=== PATIENT | female | born 2000 | race Caucasian/White ===

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

== ENCOUNTER 2019-02-15 13:39 | Emergency (ER) | payer OTHER ==
[2019-02-15 13:47] VITALS: BP 108/54; PULSE 80; TEMP 98; BMI 21.9
[2019-02-15] MEDS ORDERED: DIPHTH,PERTUSS(ACELL),TET 0.5 ML DISP.SYRIN IM ONE ×2 (13:51→14:14)
--- NOTE | 2019-02-15 13:51 | PDOC ---
Rapid Medical Evaluation Time Seen by Provider: 02/15/19 13:46 Medical Evaluation: Allergies Allergy/AdvReac Type Severity Reaction Status Date / Time No Known Allergies Allergy Verified 02/15/19 13:47 Vital Signs Temp Pulse Resp BP Pulse Ox 98 F 80 18 108/54 L 99 02/15/19 13:45 02/15/19 13:45 02/15/19 13:45 02/15/19 13:45 02/15/19 13:45 02/15/19 13:47 Pt c/o: pts domesticated indoor cat bit her yesterday to rt ankle, now red and swollen, denies med hx Pt on brief exam: nild erythema and edema to lat aspect of rt malleolus Pt ordered for: tdap Pt to proceed to the ED Discharge Disposition - Diagnosis Cat bite - Referrals - Patient Instructions - Post Discharge Activity
--- NOTE | 2019-02-15 14:38 | PDOC ---
History of Present Illness - General Chief Complaint: Bite Stated Complaint: CAT BITE ON THE RT ANKLE Time Seen by Provider: 02/15/19 13:46 History Source: Patient Exam Limitations: No Limitations - History of Present Illness Initial Comments: 02/15/19 19:05 18 year old female 14 weeks presents with cat bite to ankle. States her cat was fighting another cat and she tried to break it up and the cat bit her. States cat shots are up to date. Complaining of increasing pain, swelling and redness of ankle. Denies fever or chills. Timing/Duration: reports: yesterday Severity: Yes: moderate Location: reports: extremities Respiratory Risk Factors: reports: no cause identified Modifying Factors: improves with: other (no intervention so far ) Associated Symptoms: reports: edema Past History - Travel Traveled outside of the country in the last 30 days: Yes Close contact w/someone who was outside of country & ill: No - Past Medical History Allergies/Adverse Reactions: Allergies Allergy/AdvReac Type Severity Reaction Status Date / Time No Known Allergies Allergy Verified 02/15/19 13:47 Home Medications: Ambulatory Orders Cephalexin [Keflex] 500 mg PO BID 5 Days #10 capsule 12/11/18 Cephalexin [Keflex] 500 mg PO BID 5 Days #10 capsule 12/28/18 Amoxicillin/Potassium Clav [Augmentin 875-125 Tablet] 1 each PO BID #20 tablet 02/15/19 COPD: No - Immunization History Immunization Up to Date: Yes - Psycho Social/Smoking Cessation Hx Smoking History: Never smoked Hx Alcohol Use: No Drug/Substance Use Hx: No Review of Systems - Review of Systems Able to Perform ROS?: Yes Is the patient limited B[place]ian proficient: No Constitutional: No: Fever, Malaise, Weakness HEENTM: No: Nose Congestion, Hearing Loss, Throat Pain, Throat Swelling Respiratory: No: Orthopnea, Shortness of Breath, SOB at Rest, Wheezing Cardiac (ROS): No: Edema, Lightheadedness ABD/GI: No: Nausea, Poor Appetite, Abdominal cramping Musculoskeletal: Yes: Joint Pain, Joint Swelling Integumentary: Yes: Bruising, Erythema Neurological: No: Headache, Numbness, Paresthesia, Tingling, Tremors Psychiatric: No: Stressors Endocrine: No: Intolerance to Heat Hematologic/Lymphatic: No: Blood Clots *Physical Exam - Vital Signs Last Vital Signs Temp Pulse Resp BP Pulse Ox 98 F 80 18 108/54 L 99 02/15/19 13:45 02/15/19 13:45 02/15/19 13:45 02/15/19 13:45 02/15/19 13:45 - Physical Exam General Appearance: Yes: Nourished HEENT: positive: TMs Normal, Pharynx Normal Neck: positive: Supple. negative: Lymphadenopathy (R), Lymphadenopathy (L) Respiratory/Chest: positive: Lungs Clear Cardiovascular: positive: Regular Rhythm, Regular Rate Musculoskeletal: negative: Vertebral Tenderness Extremity: positive: Normal Capillary Refill, Swelling, Erythema, Other (+ swelling of right lateral malleolus, + tenderness, + erythematous). 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 States her cat was fighting another cat and she tried to break it up and the cat bit her. States cat shots are up to date. Complaining of increasing pain, swelling and redness of ankle. Denies fever or chills. Cat bit with early cellulitis -tetanus ordered by SIMONE Crocker -RX: augmentin ( category B), instructed patient to follow up with residential installer strict return instructions given and s/s of worsening infection instructed Discharge - Discharge Information Problems reviewed: Yes Clinical Impression/Diagnosis: Cat bite Qualifiers: Encounter type: initial encounter Qualified Code(s): W55.01XA - Bitten by cat, initial encounter Condition: Good Disposition: HOME - Admission No - Additional Discharge Information Prescriptions: Amoxicillin/Potassium Clav [Augmentin 875-125 Tablet] 1 each PO BID #20 tablet - Follow up/Referral Referrals: Diya Luciano MD [Primary Care Provider] - (call for appointment) - Patient Discharge Instructions Patient Printed Discharge Instructions: DI for Animal Bites Additional Instructions: Please wash area with soap and water Call residential installer for follow up appointment Take medication as prescribed return for worsening symptoms - Post Discharge Activity Work/Back to School Note: Back to Work
== END 2019-02-15 14:41 | disposition home or self-care (01) ==
LOC: JERFT 13:39
PROC: 3E0234Z Introduction of Serum, Toxoid and Vaccine into Muscle, Percutaneous Approach (ICD-10-PCS; principal; 2019-02-15)
DX: O99.89 Other specified diseases and conditions complicating pregnancy, childbirth and the puerperium (principal); S91.051A Open bite, right ankle, initial encounter; L03.115 Cellulitis of right lower limb; W55.01XA Bitten by cat, initial encounter; Y93.K9 Activity, other involving animal care; Y92.038 Other place in apartment as the place of occurrence of the external cause; Y99.8 Other external cause status; Z3A.14 14 weeks gestation of pregnancy
CPT/HCPCS: 90715; 99281-25

== ENCOUNTER 2019-03-06 12:53 | Emergency (ER) | payer OTHER ==
--- NOTE | 2019-03-06 13:19 | PDOC ---
Rapid Medical Evaluation Time Seen by Provider: 03/06/19 13:17 Medical Evaluation: Allergies Allergy/AdvReac Type Severity Reaction Status Date / Time No Known Allergies Allergy Verified 02/15/19 13:47 03/06/19 13:17 I have performed a brief in-person evaluation of this patient. The patient presents with a chief complaint of:Lower abd pain since last night. No vag bleed, dysuria, n/v/f/c. , currently 17 weeks by dates, confirmed IUP on multiple US, last US 02/26 w/ no issues w/ preg so far. F/u with Dr Luciano of OB Pertinent physical exam findings:stable and well arleen I have ordered the following:ua/ucx The patient will proceed to the ED for further evaluation. 03/06/19 13:19 Discharge Disposition - Diagnosis Abdominal pain affecting - Referrals - Patient Instructions - Post Discharge Activity
[2019-03-06 13:20] VITALS: BMI 21.9
--- NOTE | 2019-03-06 14:21 | PDOC ---
*Physical Exam - Vital Signs Last Vital Signs Temp Pulse Resp BP Pulse Ox 98.5 F 75 16 104/62 99 03/06/19 13:18 03/06/19 13:18 03/06/19 13:18 03/06/19 13:18 03/06/19 13:18 ED Treatment Course - LABORATORY CBC & Chemistry Diagram: 03/06/19 16:22 03/06/19 16:22 Medical Decision Making - Medical Decision Making 03/06/19 14:21 18 yo F 19 week presenting to the ER due to RLQ pain which has been persistent Pt seen by Midlevel Provider under my direct supervision Pt interviewed and examined Agree with YUSRA exam Ancillary studies reviewed OB US shows IUP at 19 weeks gestation UA + --> will treat MRI abdomen - pending I agree with plan as outlined by Midlevel Provider Discharge - Discharge Information Problems reviewed: Yes Clinical Impression/Diagnosis: Right ovarian cyst UTI (urinary tract infection) Qualifiers: Urinary tract infection type: acute cystitis Hematuria presence: without hematuria Qualified Code(s): N30.00 - Acute cystitis without hematuria Condition: Stable Disposition: HOME - Additional Discharge Information Prescriptions: Cephalexin Monohydrate [Keflex -] 500 mg PO BID #13 capsule - Follow up/Referral - Patient Discharge Instructions Patient Printed Discharge Instructions: DI for Ovarian Cyst Additional Instructions: Thank you for choosing [facility]. It was a pleasure taking care of you. There was no evidence of appendicitis There is possibility of ruptured right ovarian cyst Take Tylenol as needed for pain You were given antibiotics for urine infection Continue follow-up with your OB Return to the Emergency Department if your symptoms worsen or persist or have other concerning symptoms. - Post Discharge Activity
[2019-03-06] MEDS ORDERED: ACETAMINOPHEN 500 MG TABLET (FP) PO ONE (14:37)
--- NOTE | 2019-03-06 15:26 | PDOC ---
History of Present Illness - General Chief Complaint: Pain Stated Complaint: PREG/ABD PAIN Time Seen by Provider: 03/06/19 13:17 History Source: Patient Exam Limitations: No Limitations - History of Present Illness Initial Comments: 03/06/19 15:22 18-year-old female 17 weeks GA, on vitamins presents complaining of constant right lower quadrant crampy pain since 3 AM today. Denies nausea, vomiting, fever, chills, decreased appetite, vaginal bleeding, vaginal discharge , chest pain, shortness of breath, back pain or urinary symptoms. She reports a normal ultrasound February 26 and has a follow-up appointment with ( OB) March 12, 2019. ROS: GENERAL/CONSTITUTIONAL: No fever, chills, weakness HEAD, EYES, EARS, NOSE AND THROAT: No changes in vision, No ear pain or discharge, No sore throat CARDIOVASCULAR: No chest pain RESPIRATORY: No shortness of breath or cough GASTROINTESTINAL: Right lower quadrant abdominal pain, denies nausea, vomiting, diarrhea or constipation GENITOURINARY: No dysuria MUSCULOSKELETAL: No neck or back pain SKIN: No rash NEUROLOGIC: No headache, vertigo, loss of consciousness, or loss of sensation PE: GENERAL: well-appearing, NAD HEAD: NCAT EYES: Pupils equal, round and reactive to light, sclera anicteric, conjunctiva clear ENT: pharynx: no erythema, no exudate, uvula midline NECK: supple CHEST: nontender RESP: clear, no w/r/r CARDIO: rrr, no m/g/r ABD: +BS, soft, RLQ ttp, no r/g, non distended BACK: no midline spinal ttp, no CVAT EXTREMITIES: Normal range of motion, no edema NEUROLOGICAL: Normal speech, normal gait SKIN: Warm, Dry Past History - Past Medical History Allergies/Adverse Reactions: Allergies Allergy/AdvReac Type Severity Reaction Status Date / Time No Known Allergies Allergy Verified 03/06/19 13:18 Home Medications: Ambulatory Orders Cephalexin [Keflex] 500 mg PO BID 5 Days #10 capsule 12/11/18 Cephalexin [Keflex] 500 mg PO BID 5 Days #10 capsule 12/28/18 Amoxicillin/Potassium Clav [Augmentin 875-125 Tablet] 1 each PO BID #20 tablet 02/15/19 COPD: No - Immunization History Immunization Up to Date: Yes - Psycho Social/Smoking Cessation Hx Smoking History: Never smoked Information on smoking cessation initiated: No Hx Alcohol Use: No Drug/Substance Use Hx: No *Physical Exam - Vital Signs Last Vital Signs Temp Pulse Resp BP Pulse Ox 98.5 F 75 16 104/62 99 03/06/19 13:18 03/06/19 13:18 03/06/19 13:18 03/06/19 13:18 03/06/19 13:18 Medical Decision Making - Medical Decision Making 03/06/19 15:24 18-year-old denies past medical history, 17 weeks GA complaining of constant right lower quadrant pain since 3 AM today. Denies n/v/f/c/d, decreased appetite, vaginal bleeding, back pain, urinary symptoms. Ordered CBC, BMP, type and screen, coags UA, urine culture Consider abdominal MRI to rule out appendicitis 03/06/19 16:09 Ordered OB ultrasound to rule out appendectomy Also ordered abdominal MRI without contrast Lab results pending Signed out to SOY Minor Discharge - Discharge Information Problems reviewed: Yes Clinical Impression/Diagnosis: Abdominal pain affecting Condition: Stable - Follow up/Referral - Patient Discharge Instructions - Post Discharge Activity
[2019-03-06] MEDS ORDERED: ACETAMINOPHEN 325 MG TABLET (FP) ONE (16:01)
[2019-03-06 16:47] LABS: BASO % 0.5 % (0-2.0); EOS % 1.1 % (0-4.5); HEMATOCRIT 32.7 % (32.4-45.2); HEMOGLOBIN 11.2 GM/dL (10.7-15.3); LYMPH % 21.9 % (8-40); MCH 32.4 pg (25.7-33.7); MCHC 34.2 g/dl (32.0-36.0); MEAN CELL VOLUME 94.7 fl (80-96); MEAN PLT VOLUME 8.6 fl (7.5-11.1); MONO % 6.4 % (3.8-10.2); NEUT % 70.1 % (42.8-82.8); PLATELET COUNT 232 K/MM3 (134-434); RBC 3.45 M/mm3 (3.60-5.2); RDW 13.6 % (11.6-15.6); WHITE BLOOD COUNT 10.6 K/mm3 (4.0-10.0)
[2019-03-06 16:52] LABS: EPI CELLS 7.2 /HPF (0-5/HPF); HYALINE CASTS 8 /lpf (0-8); PH,URINE 5.5 (5.0-8.0); URINE APPEARANCE CLOUDY; URINE BACTERIA 477.5 /hpf (NEGATIVE); URINE BILIRUBIN NEGATIVE (NEGATIVE); URINE COLOR YELLOW; URINE GLUCOSE (UA) NEGATIVE (NEGATIVE); URINE KETONE 2+ (NEGATIVE); URINE LEUK ESTERASE 2+ (NEGATIVE); URINE NITRITE NEGATIVE (NEGATIVE); URINE PROTEIN NEGATIVE (NEGATIVE); URINE RBC 1 /hpf (0-4); URINE UROBILINOGEN 0.2 mg/dL (0.2-1.0); URINE WBC 73 /hpf (0-5)
[2019-03-06 17:01] LABS: INR 1.03 (0.83-1.09); PROTHROMBIN TIME (PATIENT) 12.1 SEC (9.7-13.0)
[2019-03-06 17:03] LABS: ACTIVATED PTT 32.1 SECONDS (25.2-36.5)
[2019-03-06 17:15] LABS: ALBUMIN 3.2 g/dl (3.4-5.0); BILIRUBIN,TOTAL 0.2 mg/dL (0.2-1); BLOOD UREA NITROGEN 5.9 mg/dL (7-18); CALCIUM 9.1 mg/dL (8.5-10.1); CREATININE 0.4 mg/dL (0.55-1.3); POTASSIUM 3.9 mmol/L (3.5-5.1); TOT PROT 7.1 g/dl (6.4-8.2)
--- NOTE | 2019-03-06 18:13 | PDOC ---
*Physical Exam - Vital Signs Last Vital Signs Temp Pulse Resp BP Pulse Ox 98.5 F 75 16 104/62 99 03/06/19 13:18 03/06/19 13:18 03/06/19 13:18 03/06/19 13:18 03/06/19 13:18 ED Treatment Course - LABORATORY CBC & Chemistry Diagram: 03/06/19 16:22 03/06/19 16:22 - ADDITIONAL ORDERS Additional order review: Laboratory Results 03/06/19 03/06/19 03/06/19 16:22 16:22 16:22 PT with INR 12.10 INR 1.03 PTT (Actin FS) 32.1 Sodium 137 Potassium 3.9 Chloride 105 Carbon Dioxide 27 Anion Gap 6 L BUN 5.9 L Creatinine 0.4 L Est GFR (CKD-EPI)AfAm 175.00 Est GFR (CKD-EPI)NonAf 151.00 Random Glucose 70 L Calcium 9.1 Total Bilirubin 0.2 AST 19 ALT 26 Alkaline Phosphatase 44 L Total Protein 7.1 Albumin 3.2 L Urine Color Urine Appearance Urine pH Ur Specific Belk Urine Protein Urine Glucose (UA) Urine Ketones Urine Blood Urine Nitrite Urine Bilirubin Urine Urobilinogen Ur Leukocyte Esterase Urine WBC (Auto) Urine RBC (Auto) Urine Casts (Auto) U Epithel Cells (Auto) Urine Bacteria (Auto) Blood Type A POSITIVE Antibody Screen Negative 03/06/19 16:22 PT with INR INR PTT (Actin FS) Sodium Potassium Chloride Carbon Dioxide Anion Gap BUN Creatinine Est GFR (CKD-EPI)AfAm Est GFR (CKD-EPI)NonAf Random Glucose Calcium Total Bilirubin AST ALT Alkaline Phosphatase Total Protein Albumin Urine Color Yellow Urine Appearance Cloudy Urine pH 5.5 D Ur Specific Belk 1.012 Urine Protein Negative Urine Glucose (UA) Negative Urine Ketones 2+ H Urine Blood Negative Urine Nitrite Negative Urine Bilirubin Negative Urine Urobilinogen 0.2 Ur Leukocyte Esterase 2+ H Urine WBC (Auto) 73 Urine RBC (Auto) 1 Urine Casts (Auto) 8 U Epithel Cells (Auto) 7.2 Urine Bacteria (Auto) 477.5 Blood Type Antibody Screen 03/06/19 16:22 RBC 3.45 L MCV 94.7 MCHC 34.2 RDW 13.6 MPV 8.6 Neutrophils % 70.1 Lymphocytes % 21.9 Monocytes % 6.4 Eosinophils % 1.1 Basophils % 0.5 Medical Decision Making - Medical Decision Making Patient signed out to me by SOY Turner Patient currently resting in NAD OB US shows IUP at 19 weeks gestation Pending to get MRI done to r/o appendicitis 03/06/19 18:12 Labs reviewed - will treat UA given patient is Given Keflex MRI abdomen - neg for appendicitis, possible ruptured cyst along R ovary Patient feeling better Tolerating PO stable for dc 03/06/19 19:33 Discharge - Discharge Information Problems reviewed: Yes Clinical Impression/Diagnosis: Right ovarian cyst UTI (urinary tract infection) Qualifiers: Urinary tract infection type: acute cystitis Hematuria presence: without hematuria Qualified Code(s): N30.00 - Acute cystitis without hematuria Condition: Stable Disposition: HOME - Admission No - Additional Discharge Information Prescriptions: Cephalexin Monohydrate [Keflex -] 500 mg PO BID #13 capsule Prescription Drug Monitoring Program (I-STOP) results: I-STOP not reviewed - Follow up/Referral - Patient Discharge Instructions Patient Printed Discharge Instructions: DI for Ovarian Cyst Additional Instructions: Thank you for choosing [facility]. It was a pleasure taking care of you. There was no evidence of appendicitis There is possibility of ruptured right ovarian cyst Take Tylenol as needed for pain You were given antibiotics for urine infection Continue follow-up with your OB Return to the Emergency Department if your symptoms worsen or persist or have other concerning symptoms. - Post Discharge Activity
[2019-03-06] MEDS ORDERED: CEPHALEXIN MONOHYDRATE 500 MG CAPSULE (UD) PO ONE (19:33)
[2019-03-06] MEDS ORDERED: CEPHALEXIN MONOHYDRATE 500 MG CAPSULE (UD) ONE (19:42)
[2019-03-06 21:09] VITALS: BP 96/60; PULSE 77; TEMP 98
== END 2019-03-06 19:50 | disposition home or self-care (01) ==
LOC: JER 12:53
DX: O26.892 Other specified pregnancy related conditions, second trimester (principal); O34.82 Maternal care for other abnormalities of pelvic organs, second trimester; N83.291 Other ovarian cyst, right side; O23.12 Infections of bladder in pregnancy, second trimester; Z3A.19 19 weeks gestation of pregnancy
CPT/HCPCS: 36415; 74181-TC; 76815; 80053; 81003; 85025; 85610; 85730; 86850; 86900; 86901; 87086; 99283-25

== ENCOUNTER 2021-02-14 21:52 | Emergency (ER) | payer OTHER ==
[2021-02-14 21:54] VITALS: TEMP 98.5; BMI 25.6
[2021-02-14] MEDS ORDERED: SODIUM CHLORIDE 0.9% 1000 ML INFUS.BAG IV ONE (23:21)
[2021-02-14] MEDS ORDERED: ONDANSETRON 4 MG/2 ML VIAL IVPUSH ONE (23:21)
[2021-02-14] MEDS ORDERED: ONDANSETRON 4 MG/2 ML VIAL ONE (23:35)
[2021-02-14 23:40] LABS: BASO % 0.3 % (0-2.0); EOS % 0.4 % (0-4.5); HEMATOCRIT 38.1 % (32.4-45.2); HEMOGLOBIN 12.9 GM/dL (10.7-15.3); LYMPH % 13.4 % (8-40); MCHC 33.9 g/dl (32.0-36.0); MEAN CELL VOLUME 88.3 fl (80-96); MEAN PLT VOLUME 8.1 fl (7.5-11.1); MONO % 8.6 % (3.8-10.2); NEUT % 77.3 % (42.8-82.8); PLATELET COUNT 260 10^3/uL (134-434); RBC 4.32 M/mm3 (3.60-5.2); RDW 14.5 % (11.6-15.6); WHITE BLOOD COUNT 9.4 K/mm3 (4.0-10.0)
[2021-02-14 23:57] LABS: ALBUMIN 3.9 g/dl (3.4-5.0); BLOOD UREA NITROGEN 11.4 mg/dL (7-18); CALCIUM 8.8 mg/dL (8.5-10.1)
[2021-02-15] LABS: CREATININE 0.8 mg/dL (0.55-1.3)
[2021-02-15 00:02] LABS: BILIRUBIN,TOTAL 0.5 mg/dL (0.2-1); TOT PROT 8.4 g/dl (6.4-8.2)
[2021-02-15 00:39] VITALS: BP 102/59; PULSE 78
== END 2021-02-15 00:43 | disposition home or self-care (01) ==
LOC: JER 21:52
PROC: 3E033NZ Introduction of Analgesics, Hypnotics, Sedatives into Peripheral Vein, Percutaneous Approach (ICD-10-PCS; principal; 2021-02-14)
DX: R11.10 Vomiting, unspecified (principal); R19.7 Diarrhea, unspecified
CPT/HCPCS: 36415; 80053; 84703; 85025; 99284-25

== ENCOUNTER 2023-04-17 21:18 | Emergency (ER) | payer OTHER ==
[2023-04-17 21:23] VITALS: BP 111/67; PULSE 70; RESP 18; TEMP 98.2; BMI 23.8
[2023-04-17 22:58] LABS: EPI CELLS 18 /uL (0-25.1); HYALINE CASTS 1 /uL (0-3.1); URINE APPEARANCE CLEAR; URINE BACTERIA 124 /uL (0-1359); URINE BILIRUBIN NEGATIVE (NEGATIVE); URINE COLOR YELLOW; URINE GLUCOSE (UA) NEGATIVE (NEGATIVE); URINE KETONE NEGATIVE (NEGATIVE); URINE LEUK ESTERASE NEGATIVE (NEGATIVE); URINE NITRITE NEGATIVE (NEGATIVE); URINE PROTEIN NEGATIVE (NEGATIVE); URINE RBC 31 /uL (0-23.9); URINE WBC 13 /uL (0-25.8)
== END 2023-04-18 01:06 | disposition home or self-care (01) ==
LOC: JER 21:18
DX: O20.9 Hemorrhage in early pregnancy, unspecified (principal); O26.891 Other specified pregnancy related conditions, first trimester; R11.0 Nausea; Z3A.01 Less than 8 weeks gestation of pregnancy
CPT/HCPCS: 36415; 76817-TC; 81003; 84702; 86850; 86900; 86901; 87077; 87086; 99284-25

== ENCOUNTER 2023-10-01 13:56 | Emergency (ER) | payer OTHER ==
[2023-10-01 14:09] VITALS: RESP 18; BMI 27.4
[2023-10-01 14:46] VITALS: BP 121/70; PULSE 89; TEMP 98.2
[2023-10-01] MEDS: FAMOTIDINE 20 MG TABLET PO STA (16:20)
== END 2023-10-01 18:58 | disposition home or self-care (01) ==
LOC: JER 13:56
DX: O26.893 Other specified pregnancy related conditions, third trimester (principal); R10.9 Unspecified abdominal pain; Z3A.31 31 weeks gestation of pregnancy
CPT/HCPCS: 76819-TC; 99284-25

== ENCOUNTER 2023-11-21 05:25 | Inpatient (IN) | payer OTHER ==
[2023-11-21] MEDS: ELECTROLYTE-148 SOLN 500 ML IV ONE (07:00)
[2023-11-21] MEDS ORDERED: PROMETHAZINE HCL 25 MG/1 ML VIAL ONE (07:50)
[2023-11-21] MEDS ORDERED: BUTORPHANOL TARTRATE 1 MG/ML VIAL ONE (07:50)
[2023-11-21] MEDS: BUTORPHANOL TARTRATE 1 MG/ML VIAL IVPB ONE (07:55)
[2023-11-21] MEDS: PROMETHAZINE HCL 25 MG/1 ML VIAL IVPB ONE (07:55)
[2023-11-21] MEDS: ELECTROLYTE-148 SOLN 1,000 ML IV SCH (08:30)
[2023-11-21] MEDS ORDERED: AMPICILLIN SODIUM 2 GM VIAL ONE (11:06)
[2023-11-21 11:23] LABS: BASO % 0.6 % (0-2.0); EOS % 0.1 % (0-4.5); HEMATOCRIT 34.9 % (32.4-45.2); HEMOGLOBIN 11.5 GM/dL (10.7-15.3); LYMPH % 15.9 % (8-40); MCH 30.6 pg (25.7-33.7); MEAN CELL VOLUME 92.9 fl (80-96); MEAN PLT VOLUME 9.1 fl (7.5-11.1); MONO % 5.6 % (3.8-10.2); NEUT % 77.8 % (42.8-82.8); PLATELET COUNT 196 10^3/uL (134-434); RBC 3.76 M/mm3 (3.60-5.2); RDW 14.5 % (11.6-15.6); WHITE BLOOD COUNT 12.3 K/mm3 (4.0-10.0)
[2023-11-21 11:29] LABS: INR 0.93 (0.83-1.09); PROTHROMBIN TIME (PATIENT) 10.5 SEC (9.7-13.0)
[2023-11-21 11:32] LABS: ACTIVATED PTT 28.6 SECONDS (25.2-36.5)
[2023-11-21] MEDS ORDERED: FENTANYL CITRATE/PF 50 MCG/ML VIAL ONE (11:45)
[2023-11-21] MEDS ORDERED: morphine SULFATE/PF 1 MG/2 ML (2cc Syringe - QUVA) ONE (11:45)
[2023-11-21 11:51] LABS: POTASSIUM 4.2 mmol/L (3.5-5.1)
[2023-11-21 11:53] LABS: BLOOD UREA NITROGEN 8.1 mg/dL (7-18); CALCIUM 8.3 mg/dL (8.5-10.1)
[2023-11-21 11:57] LABS: CREATININE 0.5 mg/dL (0.55-1.3)
[2023-11-21] MEDS ORDERED: ONDANSETRON 4 MG/2 ML VIAL ONE (12:05)
[2023-11-21] MEDS ORDERED: ceFAZolin SODIUM 1 GM VIAL ONE (12:05)
[2023-11-21 13:07] VITALS: BMI 30.3
[2023-11-21] MEDS: OXYTOCIN 20 UNITS in 0.9% NS 20 UNIT/1,000 ML INFUS.BAG IV SCH (13:20)
[2023-11-21] MEDS ORDERED: ONDANSETRON 4 MG/2 ML VIAL IVPB PRN (13:24)
[2023-11-21] MEDS: METHYLERGONOVINE MALEATE 0.2 MG/1 ML AMP IM ONE (14:00)
[2023-11-21] MEDS ORDERED: METHYLERGONOVINE MALEATE 0.2 MG TABLET (FP) PO PRN (14:29)
[2023-11-21] MEDS ORDERED: ACETAMINOPHEN INJECTION 100 ML ONE (15:03)
[2023-11-21] MEDS: ACETAMINOPHEN 1000 MG/100 ML BAG IVPB SCH (15:05)
[2023-11-21] MEDS ORDERED: IBUPROFEN 800 MG/8 ML IJ IVPB ONE (15:59)
[2023-11-21] MEDS: IBUPROFEN 800 MG/8 ML IJ IVPB SCH (16:10)
[2023-11-21] MEDS: SENNOSIDES/DOCUSATE COMBO (SENNA PLUS) TABLET (UD) PO SCH (23:02)
[2023-11-22] MEDS: IBUPROFEN 800 MG/8 ML IJ IVPB SCH (00:36)
[2023-11-22] MEDS: oxyCODONE HCL 5 MG TABLET PO PRN (06:13)
[2023-11-22 09:17] LABS: BASO % 0.1 % (0-2.0); EOS % 0.5 % (0-4.5); HEMATOCRIT 29.9 % (32.4-45.2); LYMPH % 17.6 % (8-40); MCH 30.9 pg (25.7-33.7); MCHC 33.4 g/dl (32.0-36.0); MEAN CELL VOLUME 92.6 fl (80-96); MEAN PLT VOLUME 8.6 fl (7.5-11.1); MONO % 6.9 % (3.8-10.2); NEUT % 74.9 % (42.8-82.8); PLATELET COUNT 183 10^3/uL (134-434); RBC 3.23 M/mm3 (3.60-5.2); WHITE BLOOD COUNT 12.1 K/mm3 (4.0-10.0)
[2023-11-22] MEDS: IBUPROFEN 600 MG TABLET (FP) PO PRN (10:24)
[2023-11-22] MEDS ORDERED: BISACODYL 10 MG SUPP.RECT RC PRN (13:25)
[2023-11-22] MEDS: FERROUS SO4 325 MG TABLET (FP) PO SCH (22:08)
[2023-11-22] MEDS: SIMETHICONE 80 MG TAB.CHEW (FP) PO PRN (22:08)
[2023-11-22 22:17] VITALS: RESP 18
[2023-11-23 10:32] VITALS: BP 119/72; PULSE 63; TEMP 97.4
[2023-11-23] MEDS: ACETAMINOPHEN 325 MG TABLET (FP) PO PRN (11:26)
== END 2023-11-23 14:20 | disposition home or self-care (01) | DRG 540 ==
LOC: JDEL 05:25 → JLDR 10:30 → J3W 16:25
PROVIDERS: ADMIT Specialist; ATTEND Specialist
PROC: 10D00Z1 Extraction of Products of Conception, Low, Open Approach (ICD-10-PCS; principal; 2023-11-21)
DX: O34.219 Maternal care for unspecified type scar from previous cesarean delivery (principal); Z3A.37 37 weeks gestation of pregnancy; Z37.0 Single live birth
CPT/HCPCS: 36415; 59025; 59409; 80048; 85025; 85610; 85730; 86780; 86850; 86900; 86901; 88304-TC; 88307-TC; J0131